=== PATIENT | male | born 1945 | race Caucasian/White ===

== ENCOUNTER → 2017-03-13 | Outpatient (CLI) | payer MEDICARE, OTHER ==
[~2017-03-13] MED LIST: ASPI-664 PO; CHOL2000; CYAN100018 PO; LANS15CA19 PO; SIMV5TAB31 PO
--- NOTE | 2017-03-13 13:44 | RADRPT ---
PROCEDURE: XR Chest. CLINICAL INDICATION: Cough. Preoperative. TECHNIQUE: Two views. Frontal and lateral. COMPARISON: No prior study is available for comparison. FINDINGS: The lungs are hyperinflated but otherwise clear. The heart size is normal. There is no pleural effusion or pneumothorax. There are multiple old healed bilateral rib fractures. IMPRESSION: 1. Hyperinflated lungs. 2. Old healed bilateral rib fractures. 3. Otherwise normal chest x-ray. RPTAT: QQ .Shemar Bean MD, MD Date Time Electronically viewed and signed by .Shemar Bean MD, MD on 03/13/2017 13:44 .R/
== END | disposition home or self-care (01) ==
LOC: RAD 08:51
PROVIDERS: ATTEND Internal Medicine
DX: Z01.818 Encounter for other preprocedural examination (principal)
CPT/HCPCS: 71020

== ENCOUNTER 2017-08-03 09:57 | Emergency (ER) | payer MEDICARE, OTHER ==
[~2017-08-03] VITALS: Ht 177.8 cm; Wt 52.8 kg
[2017-08-03 09:59] VITALS: Ht 177.8 cm; Wt 52.8 kg
[2017-08-03 10:59] LABS: BASOPHILS % 0.4 % (0.0-2.0); EOSINOPHILS % 0.2 % (0.0-7.0); HEMOGLOBIN 15.6 g/dl (14.0-18.0); MEAN CORPUSCULAR HEMOGLOBIN 30.1 pg (29.0-33.0); MEAN CORPUSCULAR HGB CONC 33.9 g/dl (32.0-37.0); MEAN CORPUSCULAR VOLUME 88.6 fl (82.0-101.0); MEAN PLATELET VOLUME 10.7 fl (7.4-10.4); MONOCYTE # 0.4 10^3/ul (0.3-0.9); MONOCYTES % 8.5 % (0.0-11.0); NEUTROPHIL # 3.2 10^3/ul (1.6-7.5); NEUTROPHILS % 68.5 % (39.0-77.0); PLATELET COUNT 203 10^3/UL (140-415); RED BLOOD COUNT 5.19 10^6/ul (4.70-6.10); RED CELL DISTRIBUTION WIDTH 11.9 % (11.5-14.5); WHITE BLOOD COUNT 4.6 10^3/ul (4.8-10.8)
[2017-08-03 11:04] LABS: ADD UMIC NO; UR ASCORBIC ACID NEGATIVE (NEGATIVE); UR BILIRUBIN (Dip) NEGATIVE (NEGATIVE); UR BLOOD (Dip) NEGATIVE (NEGATIVE); UR CLARITY CLEAR (CLEAR); UR COLOR YELLOW (YELLOW); UR GLUCOSE (Dip) NEGATIVE (NEGATIVE); UR KETONES (Dip) 1+ mg/dL (NEGATIVE); UR LEUKOCYTE ESTERASE (Dip) NEGATIVE Leu/ul (NEGATIVE); UR NITRITE (Dip) NEGATIVE (NEGATIVE); UR SPECIFIC GRAVITY (Dip) 1.009 (1.003-1.030); UR TOTAL PROTEIN (Dip) NEGATIVE (NEGATIVE); UR UROBILINOGEN (Dip) NEGATIVE (NEGATIVE)
--- NOTE | 2017-08-03 11:22 | ERD ---
ER Documentation Chief Complaint Chief Complaint pt bib self with c/o abd pain constipation x 5-6 days HPI This is a 72-year-old male with a history of hyperlipidemia, GERD, prostate cancer status post removal presenting with 2-3 days of constipation. The patient does not endorse abdominal pain. He does not endorse a decreased appetite, but he states that he was worried about becoming more constipated so he has eaten a little less over the last 2 days. The patient is unsure what the consistency of his last stool was. He thinks that perhaps it was soft. He does not endorse any rectal bleeding. The patient states that he feels like his peristalsis is declining, and he is concerned of intra-abdominal cancer. The patient spoke to his primary care physician who recommended that he get a CT scan. The patient was given a referral for an outpatient CT scan, but he lost it. The patient decided to come to the emergency department for further evaluation of his constipation. The patient denies feeling sick recently. The patient denies fever or chills. The patient has had no headache or vision changes. The patient does not endorse neck or back pain. The patient denies lightheadedness or dizziness. The patient has had no chest pain or shortness of breath or trouble breathing. The patient denies nausea or vomiting. The patient denies abdominal pain or changes to urination. He has no bleeding or burning or pain with urination. The patient has had no focal deficits. The patient has had no weakness or numbness or tingling to the face or extremities. ROS All systems reviewed and are negative except as per history of present illness. Medications Home Meds Reported Medications Cyanocobalamin (B12 Health Booster) 1,000 Mcg/15 Ml Oral.susp, 1000 MCG PO EVERY OTHER MONTH 10/05/14 Lansoprazole* (Prevacid*) 15 Mg Capsule.dr, 15 MG PO BID Y for UNKNOWN DOSE, CAP 10/05/14 Simvastatin* (Zocor*) 5 Mg Tablet, 5 MG PO HS Y for UNKNOWN DOSE, TAB 10/05/14 Aspirin (Tasprin) 81 Mg Tablet.dr, 162 MG PO DAILY, 0 Refills 12/29/10 Cholecalciferol* (Vitamin D3*) 2,000 Unit Cap 12/29/10 Allergies Allergies: Coded Allergies: meperidine (Verified Allergy, Mild, HIVES, 11/30/14) gluten (Verified Adverse Reaction, Severe, GI UPSET/ DIARRHEA, 11/30/14) PMhx/Soc History of Surgery: Yes Anesthesia Reaction: No Hx Neurological Disorder: No Hx Respiratory Disorders: No Hx Cardiac Disorders: Yes (HTN) Hx Psychiatric Problems: No Hx Miscellaneous Medical Probl: Yes (SYNCOPE) Hx Alcohol Use: No Hx Substance Use: No Hx Tobacco Use: No Smoking Status: Never smoker FmHx Family History: No coronary disease, No diabetes Physical Exam Vitals Vital Signs Date Time Temp Pulse Resp B/P Pulse Ox O2 Delivery O2 Flow Rate FiO2 08/03/17 09:59 97.2 93 18 135/90 99 Physical Exam Const: No apparent distress, well-developed, well-nourished Head: Normocephalic, Atraumatic Eyes: Normal Conjunctiva. Extraocular movements intact. Pupils equal, round and reactive to light ENT: Normal External Ears, Nose and Mouth. Neck: Full range of motion. No meningismus. Resp: Clear to auscultation bilaterally, No wheezes, rales or rhonchi Cardio: Regular rate and rhythm. No murmurs, rubs or gallops Abd: Soft, non tender, non distended. Normal bowel sounds Skin: No petechiae or rashes Back: No midline tenderness. No CVA tenderness Ext: No cyanosis, or edema Neur: Awake and alert, oriented 4. Cranial nerves intact. No facial droop. Normal strength, sensation and coordination. Psych: Normal Mood and Affect Result Diagram: 08/03/17 1051 08/03/17 1051 Results 24 hrs Laboratory Tests Test 08/03/17 10:40 08/03/17 10:51 Urine Color YELLOW Urine Clarity CLEAR Urine pH 5.0 Urine Specific [place] 1.009 Urine Ketones 1+mg/dL Urine Nitrite NEGATIVEmg/dL Urine Bilirubin NEGATIVEmg/dL Urine Urobilinogen NEGATIVEmg/dL Urine Leukocyte Esterase NEGATIVELeu/ul Urine Hemoglobin NEGATIVEmg/dL Urine Glucose NEGATIVEmg/dL Urine Total Protein NEGATIVEmg/dl White Blood Count 4.610^3/ul Red Blood Count 5.1910^6/ul Hemoglobin 15.6g/dl Hematocrit 46.0% Mean Corpuscular Volume 88.6fl Mean Corpuscular Hemoglobin 30.1pg Mean Corpuscular Hemoglobin Concent 33.9g/dl Red Cell Distribution Width 11.9% Platelet Count 47047^3/UL Mean Platelet Volume 10.7fl Neutrophils % 68.5% Lymphocytes % 22.0% Monocytes % 8.5% Eosinophils % 0.2% Basophils % 0.4% Nucleated Red Blood Cells % 0.0/100WBC Neutrophils # 3.210^3/ul Lymphocytes # 1.010^3/ul Monocytes # 0.410^3/ul Eosinophils # 0.010^3/ul Basophils # 0.010^3/ul Nucleated Red Blood Cells # 0.010^3/ul Sodium Level 139mmol/L Potassium Level 5.0mmol/L Chloride Level 99mmol/L Carbon Dioxide Level 27mmol/L Anion Gap 18 Blood Urea Nitrogen 15mg/dl Creatinine 1.13mg/dl Glucose Level 87mg/dl Calcium Level 10.1mg/dl Total Bilirubin 1.0mg/dl Direct Bilirubin 0.00mg/dl Indirect Bilirubin 1.0mg/dl Aspartate Amino Transf (AST/SGOT) 27IU/L Alanine Aminotransferase (ALT/SGPT) 30IU/L Alkaline Phosphatase 68IU/L Total Protein 7.1g/dl Albumin 4.2g/dl Globulin 2.90g/dl Albumin/Globulin Ratio 1.44 Lipase 153U/L Current Medications Medications (Trade) Dose Ordered Sig/Sveta Route PRN Reason Start Time Stop Time Status Last Admin Dose Admin Iohexol 150 ml 150 ml STK-MED ONCE .ROUTE 08/03/17 11:45 08/03/17 11:46 DC Sodium Chloride (NS) 0 ml @ ud STK-MED ONCE .ROUTE 08/03/17 11:45 08/03/17 11:46 DC Procedures/MDM MDM The patient's presentation warrants further investigation. LABS The patient's blood work was obtained and reviewed. The patient's CBC shows leukocytosis and left shift. The patient is afebrile and does not appear systemically ill. I do not suspect a systemic infection. The patient is not anemic today. The patient's platelet count is unremarkable. The patient's CMP shows no signs of metabolic or electrolyte emergencies. The patient has unremarkable renal and hepatic function testing. Urinalysis is negative for hematuria or infection. IMAGING CT Abd/Pelvis The lung bases are clear. The heart is not enlarged without pericardial thickening or effusion. The liver is normal in size and density without focal hepatic mass or biliary dilatation. The spleen is normal in size. The stomach is partially collapsed with thickened wall of the distal gastric antrum. The pancreas as visualized is normal. The gallbladder is normal and there is no evidence of biliary dilatation. The adrenal glands are symmetrical and normal. There are 3 tiny hemorrhagic renal cysts at the inferior aspect of the left kidney. There are also 4 small left renal cysts. The kidneys are symmetrically normal bilaterally. No renal obstructive uropathy or mass lesion is seen. The aorta is normal in caliber. There is no retroperitoneal lymphadenopathy. The ariane hepatis region is clear. The bowel and mesentery, as visualized, are equally unremarkable. There is no indication of acute appendicitis in the right lower quadrant. The small bowel loops situated within the pelvis are unremarkable. The pelvic organs are normal. The pelvic sidewalls and inguinal regions are clear. No mass, lymphadenopathy is seen. No acute inflammation seen. There is 3.5 cm x 2 cm right-sided bladder diverticulum. There is slightly thickened wall of the urinary bladder with tiny linear calcification posteriorly. The surrounding osseous structures are unremarkable for degenerative spondylosis. No osteolytic or osteoblastic lesion is detected. IMPRESSION: 3.5 cm x 2 cm right-sided bladder diverticulum. Thickening wall of the urinary bladder with a tiny linear calcification posteriorly. 3 tiny hemorrhagic renal cysts at the inferior aspect of the left kidney. 4 small left renal cysts. Thickened wall of the distal gastric antrum. Recommend endoscopy if clinically indicated. Electronically viewed and signed by .Rhys Otero MD, on 08/03/2017 12:16 TREATMENT/DISPOSITION The patient does have some mild inflammatory changes within the abdomen. However, this may be further worked up as an outpatient. The patient's blood work is reassuring. The patient does not have findings consistent with AAA. The patient's presentation is not consistent with mesenteric ischemia. The patient does not have findings consistent with diverticulitis. The patient does have a bladder diverticulum with some wall thickening, but he does not endorse urinary symptoms. The patient does have a thickened wall of the distal gastric antrum that is consistent with possible gastritis. The patient does have a history of this and is already on medication. The radiologist did recommend an EGD. This may be further evaluated by the patient's physician and this may be done as an outpatient. At this time, I feel that the patient stable for discharge. The patient will need follow-up with his primary care physician in 2-3 days. The patient will be given strict precautions with which to return to the emergency department. The patient's blood pressure was elevated at greater than 120/80 while in the emergency department. The patient was otherwise stable with no evidence of hypertensive urgency or emergency or end organ damage. The patient does not require admission for blood pressure control. I have discussed with the patient the risks of hypertension. I have advised the patient to follow up with the primary care physician for outpatient monitoring and treatment for hypertension in 2-3 days. I have instructed the patient to return to the ER for any new or worsening symptoms including chest pain, shortness of breath, headache, blurred vision, confusion, nausea, vomiting or LOC. Disclaimer: Inadvertent spelling and grammatical errors are likely due to EHR/ dictation software use and do not reflect on the overall quality of patient care. Note that the electronic time recorded on this note does not necessarily reflect the actual time of the patient encounter. Departure Diagnosis: Primary Impression: Constipation Constipation type: unspecified constipation type Qualified Code: K59.00 - Constipation, unspecified constipation type Additional Impressions: Bladder diverticulum Gastritis Gastritis type: unspecified gastritis Chronicity: unspecified Gastritis bleeding: presence of bleeding unspecified Qualified Code: K29.70 - Gastritis , presence of bleeding unspecified, unspecified chronicity, unspecified gastritis type Condition: LIONEL Londono MD Aug 03, 2017 11:22
[2017-08-03 11:27] LABS: ALBUMIN 4.2 g/dl (3.3-4.9); ALBUMIN/GLOBULIN RATIO 1.44; CALCIUM 10.1 mg/dl (8.4-10.2); CREATININE 1.13 mg/dl (0.61-1.24); TOTAL PROTEIN 7.1 g/dl (6.1-8.1)
[2017-08-03] MEDS ORDERED: IOHEXOL 300MG/ML 150 ML BTL ONE (11:45)
[2017-08-03] MEDS ORDERED: SOD CHLORIDE 0.9% 0 ML ONE (11:45)
--- NOTE | 2017-08-03 12:16 | RADRPT ---
PROCEDURE: CT abdomen and pelvis without IV contrast. CLINICAL INDICATION: Abdomen pain. TECHNIQUE: CT scan of the abdomen and pelvis was performed on a [address] scanner. The patient is scanned without IV contrast. Coronal and sagittal reformatted images were obtained from the axia l source images. Images were reviewed on a high-resolution PACS workstation. DICOM images are avai lable. Total radiation dose: Total CTDIvol: 4.2 mGy. Total DLP: 212 mGy-cm. One or more of the following d ose reduction techniques were used: automated exposure control, adjustment of the mA and/or kV accor ding to patient size, or use of iterative reconstruction technique. COMPARISON: None available. FINDINGS: CT abdomen: The lung bases are clear. The heart is not enlarged without pericardial thickening or effusion. The liver is normal in size and density without focal hepatic mass or biliary dilatation. The splee n is normal in size. The stomach is partially collapsed with thickened wall of the distal gastric a ntrum. The pancreas as visualized is normal. The gallbladder is normal and there is no evidence of biliary dilatation. The adrenal glands are symmetrical and normal. There are 3 tiny hemorrhagic renal cysts at the infe rior aspect of the left kidney. There are also 4 small left renal cysts. The kidneys are symmetrica lly normal bilaterally. No renal obstructive uropathy or mass lesion is seen.. The aorta is normal in caliber. There is no retroperitoneal lymphadenopathy. The ariane hepatis reg ion is clear. The bowel and mesentery, as visualized, are equally unremarkable. CT pelvis: There is no indication of acute appendicitis in the right lower quadrant. The small bowel loops sit uated within the pelvis are unremarkable. The pelvic organs are normal. The pelvic sidewalls and i nguinal regions are clear. No mass, lymphadenopathy is seen. No acute inflammation seen. There is 3.5 cm x 2 cm right-sided bladder diverticulum. There is slightly thickened wall of the urinary bl adder with tiny linear calcification posteriorly. The surrounding osseous structures are unremarkable for degenerative spondylosis. No osteolytic or osteoblastic lesion is detected. IMPRESSION: 1. 3.5 cm x 2 cm right-sided bladder diverticulum. /thickening wall of the urinary bladder with a t iny linear calcification posteriorly. 2. 3 tiny hemorrhagic renal cysts at the inferior aspect of the left kidney. 4 small left renal c ysts 3. Thickened wall of the distal gastric antrum. Recommend endoscopy if clinically indicated. RPTAT: GG .Rhys Otero MD, Date Time Electronically viewed and signed by .Rhys Otero MD, on 08/03/2017 12:16 .Y/
[2017-08-03 12:30] VITALS: BP 132/87; PULSE 86; RESP 18; TEMP 97.2
== END 2017-08-03 13:34 | disposition home or self-care (01) ==
LOC: E/R 09:57
DX: K59.00 Constipation, unspecified (principal); N32.3 Diverticulum of bladder; K29.70 Gastritis, unspecified, without bleeding; I10 Essential (primary) hypertension; Z79.82 Long term (current) use of aspirin
CPT/HCPCS: 74176; 80053; 81003; 83690; 85025; Q9967

== ENCOUNTER 2017-08-06 14:45 | Emergency (ER) | payer MEDICARE, OTHER ==
[~2017-08-06] VITALS: Ht 180.3 cm; Wt 70.0 kg
[2017-08-06 15:02] VITALS: Ht 180.3 cm; Wt 70.0 kg
[2017-08-06 16:11] LABS: BASOPHILS % 0.2 % (0.0-2.0); HEMATOCRIT 43.1 % (42.0-52.0); HEMOGLOBIN 15.1 g/dl (14.0-18.0); LYMPHOCYTES # 0.9 10^3/ul (0.8-2.9); MEAN CORPUSCULAR VOLUME 85.5 fl (82.0-101.0); MEAN PLATELET VOLUME 11.4 fl (7.4-10.4); MONOCYTE # 0.4 10^3/ul (0.3-0.9); MONOCYTES % 6.2 % (0.0-11.0); NEUTROPHIL # 4.5 10^3/ul (1.6-7.5); NEUTROPHILS % 77.3 % (39.0-77.0); PLATELET COUNT 175 10^3/UL (140-415); RED BLOOD COUNT 5.04 10^6/ul (4.70-6.10); RED CELL DISTRIBUTION WIDTH 12.1 % (11.5-14.5); WHITE BLOOD COUNT 5.8 10^3/ul (4.8-10.8)
[2017-08-06 16:31] LABS: ALANINE AMINOTRANSFERASE 31 IU/L (13-69); ALBUMIN 3.8 g/dl (3.3-4.9); ALBUMIN/GLOBULIN RATIO 1.35; ALKALINE PHOSPHATASE 76 IU/L (42-121); ANION GAP 16 (8-16); ASPARTATE AMINO TRANSFERASE 22 IU/L (15-46); BILIRUBIN,INDIRECT 0.6 mg/dl (0-1.1); BILIRUBIN,TOTAL 0.6 mg/dl (0.2-1.3); BLOOD UREA NITROGEN 17 mg/dl (7-20); CALCIUM 9.9 mg/dl (8.4-10.2); CARBON DIOXIDE 25 mmol/L (21-31); CHLORIDE 98 mmol/L (97-110); CREATININE 1.13 mg/dl (0.61-1.24); GLUCOSE 81 mg/dl (70-220); POTASSIUM 3.4 mmol/L (3.5-5.1); SODIUM 136 mmol/L (135-144); TOTAL PROTEIN 6.6 g/dl (6.1-8.1)
[2017-08-06 16:47] LABS: ACETAMINOPHEN < 10.0 ug/ml (10.0-30.0)
--- NOTE | 2017-08-06 17:42 | ERD ---
ER Documentation Chief Complaint Chief Complaint took 7 pills of sleeping aid '" want to commit suicide" HPI This is a 72-year-old male who is here for suicide attempt. The patient states that he has been thinking about suicide over the past week. He said this morning at around 10 AM he took [id number] sleep aid by the name of sleep aid which is doxylamine succinate 25 mg tablets 7. He also took another sleep aid that is Benadryl 1 he states he feels paranoid that he is being watched plotted against. He does not have any auditory or visual hallucinations. No physical complaints. He says he was sleepy earlier but not now ROS All systems reviewed and are negative except as per history of present illness. Medications Home Meds Reported Medications Cyanocobalamin (B12 Health Booster) 1,000 Mcg/15 Ml Oral.susp, 1000 MCG PO EVERY OTHER MONTH 10/05/14 Lansoprazole* (Prevacid*) 15 Mg Capsule.dr, 15 MG PO BID Y for UNKNOWN DOSE, CAP 10/05/14 Simvastatin* (Zocor*) 5 Mg Tablet, 5 MG PO HS Y for UNKNOWN DOSE, TAB 10/05/14 Aspirin (Tasprin) 81 Mg Tablet.dr, 162 MG PO DAILY, 0 Refills 12/29/10 Cholecalciferol* (Vitamin D3*) 2,000 Unit Cap 12/29/10 Allergies Allergies: Coded Allergies: meperidine (Verified Allergy, Mild, HIVES, 11/30/14) gluten (Verified Adverse Reaction, Severe, GI UPSET/ DIARRHEA, 11/30/14) PMhx/Soc Medical and Surgical Hx: pt denies Surgical Hx History of Surgery: Yes Anesthesia Reaction: No Hx Neurological Disorder: No Hx Respiratory Disorders: No Hx Cardiac Disorders: Yes (HTN) Hx Psychiatric Problems: No Hx Miscellaneous Medical Probl: Yes (SYNCOPE) Hx Alcohol Use: No Hx Substance Use: No Hx Tobacco Use: No Smoking Status: Never smoker FmHx Family History: No coronary disease Physical Exam Vitals Vital Signs Date Time Temp Pulse Resp B/P Pulse Ox O2 Delivery O2 Flow Rate FiO2 08/06/17 15:02 98.0 87 17 121/58 100 Physical Exam Const: Well-developed, well-nourished Head: Atraumatic, normocephalic Eyes: Normal Conjunctiva, PERRLA, EOMI, normal sclera, no nystagmus ENT: Normal External Ears, Nose and Mouth, moist mucus membranes. Neck: Full range of motion. No meningismus, no lymphadenopathy. Resp: Clear to auscultation bilaterally, no wheezing, rhonchi, rales Cardio: Regular rate and rhythm, no murmurs, S1 S2 present Abd: Soft, non tender x 4, non distended. Normal bowel sounds, no guarding or rebound, no pulsitile abdominal masses or bruits Skin: No petechiae or rashes, no ecchymosis , no maculopapular rash Back: No midline or flank tenderness Ext: No cyanosis, or edema, FROM x 4, normal inspection, neurovascularly intact x 4 Neur: Awake and alert, STR 5/5 x 4, sensation intact x 4, no focal findings, cerebellum intact Psych: Admits to Result Diagram: 08/06/17 1550 08/06/17 1550 Results 24 hrs Laboratory Tests Test 08/06/17 15:50 White Blood Count 5.810^3/ul Red Blood Count 5.0410^6/ul Hemoglobin 15.1g/dl Hematocrit 43.1% Mean Corpuscular Volume 85.5fl Mean Corpuscular Hemoglobin 30.0pg Mean Corpuscular Hemoglobin Concent 35.0g/dl Red Cell Distribution Width 12.1% Platelet Count 24031^3/UL Mean Platelet Volume 11.4fl Neutrophils % 77.3% Lymphocytes % 16.0% Monocytes % 6.2% Eosinophils % 0.0% Basophils % 0.2% Nucleated Red Blood Cells % 0.0/100WBC Neutrophils # 4.510^3/ul Lymphocytes # 0.910^3/ul Monocytes # 0.410^3/ul Eosinophils # 0.010^3/ul Basophils # 0.010^3/ul Nucleated Red Blood Cells # 0.010^3/ul Sodium Level 136mmol/L Potassium Level 3.4mmol/L Chloride Level 98mmol/L Carbon Dioxide Level 25mmol/L Anion Gap 16 Blood Urea Nitrogen 17mg/dl Creatinine 1.13mg/dl Glucose Level 81mg/dl Calcium Level 9.9mg/dl Total Bilirubin 0.6mg/dl Direct Bilirubin 0.00mg/dl Indirect Bilirubin 0.6mg/dl Aspartate Amino Transf (AST/SGOT) 22IU/L Alanine Aminotransferase (ALT/SGPT) 31IU/L Alkaline Phosphatase 76IU/L Total Protein 6.6g/dl Albumin 3.8g/dl Globulin 2.80g/dl Albumin/Globulin Ratio 1.35 Salicylates Level Pending Acetaminophen Level < 10.0ug/ml Ethyl Alcohol Level 75.0mg/dl Procedures/MDM Patient will have psych labs done and will have him evaluated by telemetry psychiatrist transfer to inpatient psych facility for suicide attempt and psychosis Departure Diagnosis: Primary Impression: Suicide threat or attempt Condition: Stable SHELLEY CARROLL DO Aug 06, 2017 17:41
[2017-08-06 17:52] LABS: SALICYLATE < 1.0 mg/dl (5.0-30.0)
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
[2017-08-07 02:30] VITALS: BP 160/98; PULSE 78; RESP 16; TEMP 98
[2017-08-07 02:43] LABS: BARBITURATES NEGATIVE (NEGATIVE); BENZODIAZEPINES NEGATIVE (NEGATIVE); CANNABINOIDS NEGATIVE (NEGATIVE); COCAINE NEGATIVE (NEGATIVE); OPIATES NEGATIVE (NEGATIVE)
--- NOTE | 2017-08-07 02:50 | RADRPT ---
PROCEDURE: XR Chest. CLINICAL INDICATION: Chest Pain. TECHNIQUE: PA and Lateral views of the chest were obtained. COMPARISON: 03/13/2017. FINDINGS: The cardiomediastinal silhouette is within normal limits. Hyperinflation of COPD in changes of centr olobular emphysema. No signs of pleural fluid or pneumothorax are seen. The osseous structures and s oft tissues are unremarkable. IMPRESSION: No evidence for active cardiopulmonary disease. RPTAT: [facility] Physician Ashlee Date Time Electronically viewed and signed by Physician Ashlee on 08/07/2017 02:50 RS/
[2017-08-07] MEDS ORDERED: OLANZAPINE (ODT) 5 MG TAB ODT SCH (09:00)
== END 2017-08-07 03:11 ==
LOC: E/R 14:45
DX: T45.0X2A Poisoning by antiallergic and antiemetic drugs, intentional self-harm, initial encounter (principal); I10 Essential (primary) hypertension; Z79.82 Long term (current) use of aspirin
CPT/HCPCS: 71010; 80053; 80306; 80307; 85025; 93005

== ENCOUNTER → 2018-07-28 | Outpatient (CLI) | END | disposition home or self-care (01) ==